=== PATIENT | female | born 1960 | race African-American/Black ===

== ENCOUNTER 2021-03-03 14:02 | Emergency (ER) | payer MEDICARE, OTHER ==
[~2021-03-03] VITALS: Ht 167.6 cm; Wt 140.6 kg
[2021-03-03 14:08] VITALS: BP 163/94
--- NOTE | 2021-03-03 14:21 | NUR ---
PATIENT BIB HER DAUGHTER DUE TO L 5TH FINGER LACERATION WHILE CUTTING A LEMON 45 MINS AGO. RATES PAIN 5/10. WILL CONTINUE TO MONITOR THE PATIENT.
[2021-03-03] MEDS ORDERED: LIDOCAINE 0.5% HCL 50 ML VIAL ONE (14:31)
[2021-03-03] MEDS ORDERED: CEPH250C PO (15:03)
[2021-03-03] MEDS ORDERED: TDAP [DIPH/PERTUSSIS/TET] 0.5 ML VIAL IM ONE (15:17)
[2021-03-03] MEDS: LIDOCAINE HCL/PF 1% 30 ML VIAL TP ONE (15:17)
[2021-03-03] MEDS: TDAP [DIPH/PERTUSSIS/TET] 0.5 ML VIAL IM ONE (15:18)
--- NOTE | 2021-03-03 15:23 | NUR ---
Patient discharged to home in stable condition. Written and verbal after care instructions given. Patient verbalizes understanding of instruction. The patient left ER in stable condition.
== END 2021-03-03 15:24 | disposition home or self-care (01) ==
LOC: ER 14:10
DX: S61.217A Laceration without foreign body of left little finger without damage to nail, initial encounter (principal); Z85.038 Personal history of other malignant neoplasm of large intestine; Z93.3 Colostomy status; Z79.899 Other long term (current) drug therapy; W26.8XXA Contact with other sharp object(s), not elsewhere classified, initial encounter; Y93.89 Activity, other specified; Y92.89 Other specified places as the place of occurrence of the external cause; Y99.8 Other external cause status
CPT/HCPCS: 12002; 73120; 90471; 90715; 99283; A6403; J3490

== ENCOUNTER 2021-09-30 14:42 | Emergency (ER) | payer MEDICARE, OTHER ==
[~2021-09-30] VITALS: Ht 167.6 cm; Wt 145.1 kg
[~2021-09-30 14:42] MED LIST: CEPH250C PO
--- NOTE | 2021-09-30 15:30 | NUR ---
RIGHT SHOULDER AND ARM PAIN,S/P GLF AT 1300. PT AAOX4, VSS. RR EVEN & UNLABORED. DENIES CP, SOB, DIZZINESS, N/V AT THIS TIME. AWAITING EVAL BY JEM. WILL CONT TO MONITOR.
[2021-09-30] MEDS ORDERED: oxyCODONE IR immediate release 5 MG PO PRN (16:00)
[2021-09-30] MEDS ORDERED: oxyCODONE IR immediate release 5 MG ONE (16:11)
--- NOTE | 2021-09-30 16:22 | NUR ---
PT BACK FROM XRAY. MEDICATED PER ERMD ORDER, PT [place].
[2021-09-30] MEDS ORDERED: OXYC-128 PO (19:42)
--- NOTE | 2021-09-30 19:46 | NUR ---
Patient discharged to home in stable condition. Written and verbal after care instructions given. Patient verbalizes understanding of instruction. Pt ambulatory with a steady gait
[2021-09-30 20:02] VITALS: BP 151/80
== END 2021-09-30 20:03 | disposition home or self-care (01) ==
LOC: ER 14:46
DX: S42.251A Displaced fracture of greater tuberosity of right humerus, initial encounter for closed fracture (principal); S81.011A Laceration without foreign body, right knee, initial encounter; S80.212A Abrasion, left knee, initial encounter; E11.9 Type 2 diabetes mellitus without complications; Z93.3 Colostomy status; Z60.2 Problems related to living alone; Z79.899 Other long term (current) drug therapy; W01.0XXA Fall on same level from slipping, tripping and stumbling without subsequent striking against object, initial encounter; Y93.89 Activity, other specified; Y92.89 Other specified places as the place of occurrence of the external cause; Y99.8 Other external cause status
CPT/HCPCS: 12001; 29105; 72125; 73030; 73060; 73200; 73562; 99284; A6403

== ENCOUNTER 2024-06-29 07:16 | Emergency (ER) | payer MEDICARE, OTHER ==
[~2024-06-29] VITALS: Ht 167.6 cm; Wt 99.8 kg
[~2024-06-29 07:16] MED LIST changes: +OXYC-128 PO
[2024-06-29 07:46] VITALS: BP 127/79; TEMP 98; O2SAT 99
== END 2024-06-29 08:18 | disposition home or self-care (01) ==
LOC: ER 07:16
DX: S61.213A Laceration without foreign body of left middle finger without damage to nail, initial encounter (principal); Z93.3 Colostomy status; Z85.038 Personal history of other malignant neoplasm of large intestine; W26.0XXA Contact with knife, initial encounter; Y93.89 Activity, other specified; Y92.090 Kitchen in other non-institutional residence as the place of occurrence of the external cause; Y99.8 Other external cause status